=== PATIENT | male | born 1970 | race African-American/Black ===

== ENCOUNTER 2017-09-09 14:35 | Emergency (ER) | payer OTHER ==
[~2017-09-09] VITALS: Ht 182.9 cm; Wt 74.8 kg
[2017-09-09 14:42] VITALS: Ht 182.9 cm; Wt 74.8 kg
[2017-09-09 15:58] VITALS: BP 135/80
== END 2017-09-09 15:58 | disposition home or self-care (01) ==
LOC: ED 14:35
DX: S22.32XA Fracture of one rib, left side, initial encounter for closed fracture (principal); S27.9XXA Injury of unspecified intrathoracic organ, initial encounter; V89.2XXA Person injured in unspecified motor-vehicle accident, traffic, initial encounter; Y93.89 Activity, other specified; Y92.89 Other specified places as the place of occurrence of the external cause; Y99.8 Other external cause status
CPT/HCPCS: J3010